=== PATIENT | male | born 1955 | race Caucasian/White ===

== ENCOUNTER → 2016-09-19 | Outpatient (CLI) | payer MEDICARE ==
[~2016-09-19] MED LIST: ALBU2.5V7 INH; ASPI-725 PO; EZET1TAB3 PO; HYDR25CA PO; IBUP-1724 PO; NEBI5TAB8 PO; NITR0.4T SL; OXYC1TAB8 PO; PRAS10TA5 PO; TAMS-1 PO; VENL-68 PO
[2016-09-19 15:02] LABS: ALBUMIN 4.2 G/DL (3.5-5.0); ALBUMIN/GLOBULIN RATIO 1.4 RATIO (1.1-2.2); ALKALINE PHOSPHATASE 61 U/L (38-126); ALT (SGPT) 26 U/L (21-72); ANION GAP 12 MEQ/L (5-15); AST (SGOT) 36 U/L (17-59); BUN/CREATININE RATIO 25 RATIO (6-26); CALCIUM 9.6 MG/DL (8.4-10.2); CHLORIDE 104 MEQ/L (98-107); CO2 - CARBON DIOXIDE 27 MEQ/L (22-30); CREATININE 0.8 MG/DL (0.8-1.5); GLOMERULAR FILTRATION RATE 99; GLUCOSE 87 MG/DL (75-110); POTASSIUM 3.5 MEQ/L (3.6-5); SODIUM 143 MEQ/L (134-144); TOTAL PROTEIN 7.2 G/DL (6.3-8.2)
== END ==
LOC: LABN 14:47
PROVIDERS: ATTEND Family Medicine
DX: R07.9 Chest pain, unspecified (principal)
CPT/HCPCS: 80053; 84484